=== PATIENT | female | born 1970 | race Caucasian/White ===

== ENCOUNTER 2017-08-25 09:14 | Emergency (ER) | payer BC ==
[2017-08-25 09:29] VITALS: RESP 16; TEMP 97.5
[2017-08-25] MEDS ORDERED: TRAMADOL HYDROCHLORIDE 50 MG TAB PO ONE (09:39)
[2017-08-25] MEDS ORDERED: TRAMADOL HYDROCHLORIDE 50 MG TAB ONE (09:39)
[2017-08-25] MEDS ORDERED: LIDOCAINE 5% PATCH 1 PATCH TDM TOP ONE (10:07)
[2017-08-25 11:38] VITALS: BP 176/88; PULSE 86; O2SAT 98
== END 2017-08-25 10:37 | disposition home or self-care (01) ==
LOC: ED 09:14
DX: T14.8XXA Other injury of unspecified body region, initial encounter (principal)
CPT/HCPCS: 99283; A9270-GY